=== PATIENT | male | born 1940 | race Caucasian/White ===

== ENCOUNTER 2024-03-25 15:07 | Outpatient (CLI) | payer MEDICARE, SELFPAY ==
[2024-03-25 15:26] LABS: Hematocrit 39.2 % (37.0-46.0); Hemoglobin 13.1 g/dL (12.4-15.3); Mean Corpuscular HGB Conc 33.4 g/dL (32-36); Mean Corpuscular Hemoglobin 30.6 pg (27.0-31.0); Mean Corpuscular Volume 91.6 fL (78.0-102.0); Mean Platelet Volume 9.6 fl (8.7-11.0); Platelet Count Result 202 K/mm3 (150-420); Red Blood Count 4.28 M/mm3 (4.70-6.10); Red Cell Distribution Width 13.2 % (11.6-14.4); White Blood Count 6.5 K/mm3 (4.8-10.8)
[2024-03-25 15:28] LABS: Add Urine Microscopic? NO; Appearance Urine Clear (Clear); Bilirubin Urine Negative (Negative); Blood Urine Negative (Negative); Color Urine Yellow (Yellow); Glucose Urine UA Negative (Negative); Ketones Urine Negative (Negative); Leukocyte Esterase Ur Negative LEU/UL (Negative); Nitrate Urine Negative (Negative); Protein Urine Negative (Negative); Specific Grav Ur >= 1.030 (1.010-1.020); Urobilinogen Urine 0.2 mg/dL (0.2-1.0)
[2024-03-25 16:12] LABS: Alanine Aminotransferase 19 U/L (16-63); Albumin Level 3.5 g/dL (3.4-5.0); Alkaline Phosphatase 130 U/L (46-116); Anion Gap 8 mmol/L (4-12); Aspartate Amino Transferase 13 U/L (15-37); Bilirubin,Total 0.5 mg/dL (0.00-1.00); Blood Urea Nitrogen 23 mg/dL (7-18); CRP 0.6 mg/dL (0.0-0.9); Calcium 8.9 mg/dL (8.5-10.1); Carbon Dioxide 29 mmol/L (21-32); Chloride 102 mmol/L (98-108); Estimated Glomerular Filt Rate > 60; Glucose 146 mg/dL (70-99); Osmolality Calculated 294 mOsm/kg (285-295); Sodium 139 mmol/L (136-145); Total Protein 6.7 g/dL (6.4-8.2)
== END 2024-03-25 15:08 | disposition home or self-care (01) ==
LOC: CHSLAB 15:16
PROVIDERS: PCP Internal Medicine; Visit Provider Internal Medicine
DX: R51.9 Headache, unspecified (principal)
CPT/HCPCS: 36415; 80053; 81003; 85027; 86140

== ENCOUNTER 2024-03-27 13:10 | Outpatient (CLI) | payer MEDICARE, SELFPAY ==
--- NOTE | ~2024-03-27 | CT_ITS ---
EXAMINATION: CT brain w con DATE: 03/27/2024 14:12 INDICATION: New onset headache. Lung cancer. TECHNIQUE: Computed tomography (CT) of the head was performed with 100 mL Omnipaque-350 intravenous c ontrast. Sagittal and coronal reconstructions were performed. Automated exposure control and iterativ e reconstruction technique were employed. The dose-length product was 605.33 mGy-cm. COMPARISON: None FINDINGS: No acute intracranial hemorrhage, acute infarction or abnormal extra axial fluid collection. Small ol d lacunar infarct anterior left frontal lobe periventricular white matter. There is mild scattered wh ite matter hypoattenuation consistent with chronic small vessel ischemic disease. Ventricles are nor mal and symmetric. No mass/mass effect. No abnormally enhancing brain lesions. The cerebral vasculatu re appears unremarkable with no evident aneurysm hemogram and significant stenosis or thrombosis. Dalia nges of bilateral intraocular lens replacement. The orbits, paranasal sinuses and mastoid air cells a re normal. IMPRESSION: 1. No acute intracranial process or abnormally enhancing brain lesions. 2. Small old lacunar infarct in the periventricular left frontal lobe white matter and mild scattered white matter hypoattenuation consistent with chronic small vessel ischemic disease. Reviewed, dictated and finalized at location A. IMPRESSION: 1. No acute intracranial process or abnormally enhancing brain lesions. 2. Small old lacunar infarct in the periventricular left frontal lobe white mat ter and mild scattered white matter hypoattenuation consistent with chronic sma ll vessel ischemic disease.
== END 2024-03-27 13:11 | disposition home or self-care (01) ==
PROVIDERS: PCP Internal Medicine; Visit Provider Internal Medicine
DX: R51.9 Headache, unspecified (principal); Z85.118 Personal history of other malignant neoplasm of bronchus and lung; Z86.73 Personal history of transient ischemic attack (TIA), and cerebral infarction without residual deficits
CPT/HCPCS: 70460; Q9967

== ENCOUNTER 2024-04-16 10:36 | Outpatient (CLI) | payer MEDICARE, SELFPAY ==
--- NOTE | ~2024-04-16 | XR_ITS ---
Right Knee Technique: AP, lateral, and sunrise views were obtained. Clinical History: Pain Findings: No fracture or dislocation is seen. Osseous alignment is anatomic. There is medial compartm ent narrowing. There is mild tricompartmental osteophyte formation.. Soft tissues are unremarkable. N o joint effusion is seen. Impression: Moderate medial compartment degenerative change. Mild lateral and patellofemoral compartment degenera tive change. Reviewed, dictated and finalized at location M. Impression: Moderate medial compartment degenerative change. Mild lateral and patellofemora l compartment degenerative change.
== END 2024-04-16 10:37 | disposition home or self-care (01) ==
LOC: CHSIMG 11:43
PROVIDERS: PCP Internal Medicine; Visit Provider Internal Medicine
DX: M25.561 Pain in right knee (principal)
CPT/HCPCS: 73562

== ENCOUNTER 2024-07-01 07:17 | Outpatient (CLI) | payer MEDICARE, SELFPAY ==
[2024-06-21 13:28] VITALS: BMI 26.7
--- NOTE | 2024-06-21 13:28 | PC.NURSE ---
Pre Radiology instructions Report to the outpatient az olivo on date __07/01/24__ at time __07:30am for procedure Time: __09:30am __ YOU MAY BE MONITORED AT HOSPITAL FOR UP TO 4 HOURS AFTER YOUR PROCEDURE. A visitor will be allowed to accompany the patient into the hospital. You and your visitor will be asked to self-screen and do not enter if you have any COVID symptoms. A mask is OPTIONAL within the hospital. Patients are to have no food or drink 6 hours prior to procedure time Driving will be restricted after the procedure, you must have a person to drive you home. Labs will be drawn in preop area and once reviewed, you will be taken to radiology area for procedure. When the procedure is completed, you will be taken to outpatient where you will be monitored for several hours. You may have one visitor in this area. Other than holding anti-coagulants, patient may take other medication(s) as scheduled. Prior to your appointment date patients are instructed to hold anti-coagulants after discussing with ordering provider to stop. If unable to discontinue anti-coagulants please notify radiologist. ? No aspirin or warfarin (Coumadin) for 7 days prior to the procedure. ? No clopidogrel (Plavix), ticagrelor (Brilinta), prasugrel (Effient) or dabigatran (Pradaxa) for 5 days prior to the procedure. ? No rivaroxaban (Xarelto), apixaban (Eliquis), dipyridamole (Aggrenox or Persantine) or cilostazol (Pletal) for 2 days prior to the procedure. Medications to discontinue per physician: __Aspirin 7 days prior to procedure Date to take last dose: __06/23/24 Please leave all valuables, including medications, at home the day of procedure. The hospital will not accept responsibility for valuables. Wear comfortable, loose fitting clothing.? Follow any additional instructions given to you from ordering provider. Telephone instructions given to __Ellie ( Traffic Routing Engineer at home) and asked if any additional questions and then verbalized understanding. Patient advised to call scheduling provider office or registration scheduling [phone] if any additional questions.
--- NOTE | ~2024-07-01 | XR_ITS ---
[id number] Ordering provider: Man Longoria MD History: 83 years Male with . RT THORA . Comparison: None. FINDINGS: MEDIASTINUM: The cardiac silhouette is slightly enlarged. Congestive angle. LUNGS: No pneumothorax. Opacification in the right lower lobe area suggestive of atelectasis versus p neumonia with pleural effusion. OTHER: No free air under the diaphragm. IMPRESSION: Right basilar atelectasis versus pneumonia with pleural effusion. Reviewed, dictated and finalized at location A. RIFUGE SEPARATOR OPERATOR
--- NOTE | ~2024-07-01 | US_ITS ---
EXAMINATION: US thoracentesis DATE: 07/01/2024 10:41 INDICATION: Right pleural effusion TECHNIQUE: The procedure and its risks and benefits were discussed with the patient. Potential risks discussed included bleeding, infection, and pneumothorax. The patient understood the risks and agreed to proceed. The skin was prepped and draped in sterile fashion. 1% lidocaine was used for local anes thesia. Under ultrasound guidance, a 5 Fr catheter with trochar was advanced into the right pleural e ffusion. Fluid was aspirated. The catheter was removed, and a dressing was applied. There were no imm ediate complications. FINDINGS: Ultrasound images demonstrate a large right pleural effusion and the catheter within the fluid. IMPRESSION: 1. Successful ultrasound-guided thoracentesis yielding 1100 mL of dark reddish fluid. Reviewed, dictated and finalized at location A. SCAPE GARDENER
[2024-07-01 07:30] VITALS: BP 139/76; PULSE 65; RESP 14; TEMP 36.3; O2SAT 98
[2024-07-01 08:01] LABS: Mean Platelet Volume 10.3 fl (7.4-10.4); Platelet Count Result 226 k/mm3 (150-375)
[2024-07-01 08:31] LABS: Prothrombin Time 13.8 Seconds (11.1-14.7)
[2024-07-01 10:35] VITALS: BP 127/78; PULSE 70; RESP 20; O2SAT 97
[2024-07-01 10:50] VITALS: BP 133/72; PULSE 70; RESP 20
[2024-07-01 11:15] VITALS: BP 138/74; PULSE 68; RESP 20
[2024-07-01 11:45] VITALS: BP 128/73; PULSE 76; RESP 20; O2SAT 99
[2024-07-01 12:15] VITALS: BP 131/71; PULSE 68; RESP 20
== END 2024-07-01 12:20 | disposition home or self-care (01) ==
PROVIDERS: PCP Internal Medicine; Visit Provider Radiology Diagnostic Radiology
DX: C34.90 Malignant neoplasm of unspecified part of unspecified bronchus or lung (principal); J90 Pleural effusion, not elsewhere classified; J98.11 Atelectasis
CPT/HCPCS: 32555; 36415; 85049; 85610; 87070; 87075; 87205; 88108; 88305; 88342

== ENCOUNTER 2024-09-08 09:52 | Emergency (ER) | payer MEDICARE, SELFPAY ==
[2024-09-08] VITALS (11 sets, daily range): BP systolic 115–148; BP diastolic 61–89; PULSE 58–65; RESP 16–18; TEMP 36.6; O2SAT 96–100
--- NOTE | ~2024-09-08 | CT_ITS ---
EXAMINATION: CT abdomen pelvis wo con DATE: 09/08/2024 12:17 INDICATION: Left lower quadrant swelling TECHNIQUE: Computed tomography (CT) of the abdomen and pelvis was performed without intravenous contr ast. Automated exposure control and iterative reconstruction technique were employed. The dose-length product was 501.81 mGy-cm. COMPARISON: None FINDINGS: Partially visualized at least moderate sized, potentially large right pleural effusion with some depr ession of the right hemidiaphragm. Atelectasis in the dependent portion of the visualized right middl e and lower lobes. Mild cardiomegaly. Atherosclerotic coronary artery calcifications. No pericardial or left-sided pleural effusion. Small calcified gallstones in the dependent aspect of the normal gallbladder. There are few scattered hepatic and splenic calcifications consistent with old granulomatous disease. Pancreas, right kidney and bilateral adrenal glands are normal. 7 mm nonobstructing stone at the lower pole of the left kid canelo. Normal appendix. Moderate amount of stool scattered throughout the colon. No dilated bowel to manzanares ggest obstruction. There are large bilateral fat-containing inguinal hernias. Bladder is normal. Pros tatomegaly. No free intraperitoneal gas or fluid. No pathologically enlarged abdominal or pelvic lymp hadenopathy. Moderate lumbar and lower thoracic spondylosis with combined instrumented L4-L5 anterior and posterior spinal fusion. 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 IMPRESSION: 1. No acute intra-abdominal/pelvic process. 2. Partially visualized at least moderate-sized unilateral right pleural effusion. Correlate with res ults from prior thoracentesis performed without prior. 3. Cholelithiasis. 4. Nonobstructing 7 mm left renal stone. 5. Large bilateral fat-containing inguinal hernias. 6. Prostatomegaly. Reviewed, dictated and finalized at location A. OLOGY TEACHER IMPRESSION: 1. No acute intra-abdominal/pelvic process. 2. Partially visualized at least moderate-sized unilateral right pleural effusi on. Correlate with results from prior thoracentesis performed without prior. 3. Cholelithiasis. 4. Nonobstructing 7 mm left renal stone. 5. Large bilateral fat-containing inguinal hernias. 6. Prostatomegaly.
--- NOTE | ~2024-09-08 | XR_ITS ---
EXAMINATION: XR chest 1V portable DATE: 09/08/2024 12:17 INDICATION: Shortness of breath TECHNIQUE: frontal view of the chest was obtained. COMPARISON: Chest radiograph dated 07/01/2024 FINDINGS: Interval increase in size of a large right pleural effusion with partial collapse of the right lung. Left small calcified nodule consistent with old granulomatous disease at the left midlung zone. No pu lmonary edema, pneumothorax or left-sided pleural effusion. Heart size is normal. Suture anchor at th e right humeral head suggesting prior rotator cuff repair. IMPRESSION: 1. Increased size of a unilateral large right pleural effusion with partial collapse of the right sharlene g. Underlying pneumonia or malignancy in the right lung is not excludable. Reviewed, dictated and finalized at location A. MOBILE UPHOLSTERER IMPRESSION: 1. Increased size of a unilateral large right pleural effusion with partial col lapse of the right lung. Underlying pneumonia or malignancy in the right lung i s not excludable.
--- OUTSIDE RECORDS SUMMARY | 2024-09-08 09:55 | XMS_ITS | Encounter Summary ---
Author Organization [facility] Address [facility] [place] [address] [place] [address] Care Team Providers Care Data Security Coordinator Name Role Phone Thiago Horton MD Primary Care Provider [phone] Andrea Jean Baptiste MD Unavailable [phone] Kirby Mesa APRN Unavailable [phone] Manisha Guidry MD Unavailable [phone] Encounter Details Date Type Department Care Team (Late st Contact Info) Description 09/16/2020 Hospital Follow-up Call [facility] [address] [place] [address] Rosa Asher RN Social History Tobacco Use Types Packs/Day Years Used Date Smoking Tobacco: Never Assessed Sex and Gender Information Value Date Recorded Sex Assigned at Not on file Legal Sex Male 10:23 PM PERSONNEL ADVISER Gender Identity Not on file Sexual Orientation Not on file COVID-19 Exposure Response Date Recorded In the last month, have you been in contact with someone who was confirmed or suspected to have Coronavirus / COVID-19? No / Unsure 09/14/2020 10:43 AM PERSONNEL ADVISER documented as of this encounter Functional Status * RETIRED Are you deaf or do you have serious difficulty hearing Answer Date of Assessment Author Status Yes 09/14/2020 2:52 PM PERSONNEL ADVISER Activ e * RETIRED Are you blind or do you have serious difficulty seeing, even when wearing glasses? Answer Date of Assessment Author Status No 09/14/2020 2:52 PM PERSONNEL ADVISER Activ e * Do you have serious difficulty walking or climbing stairs? Answer Date of Assessment Author Status No 09/14/2020 2:52 PM Caren Villalobos RN Active * Do you have difficulty dressing or bathing? Answer Date of Assessment Author Status No 09/14/2020 2:52 PM Caren Villalobos RN Active * Because of a physical, mental, or emotional condition, do you have difficulty doing errands alone such as visiting a doctor's office or shopping? Answer Date of Assessment Author Status No 09/14/2020 2:52 PM Caren Villalobos RN Active documented as of this encounter Mental Status * Because of a physical, mental, or emotional condition, do you have serious difficulty concentrating, remembering, or making decisions? Answer Entry Date Author Status No 09/14/2020 2:52 PM Caren Villalobos RN Active documented in this encounter Plan of Treatment Upcoming Encounters Date Type Department Care Team (Late st Contact Info) Description 09/11/2024 3:15 PM PERSONNEL ADVISER Appointment [facility] [address] [place] [address] Ari Cruz MD [address] [place] [phone] 09/11/2024 3:30 PM PERSONNEL ADVISER Office Visit [facility] [address] [place] [address] Ari Cruz MD [address] [place] [phone] 10/02/2024 9:30 AM PERSONNEL ADVISER Office Visit [facility] [address] [place] [address] Kirby Mesa, WEIGHER PACKING [address] [facility] [address] [address] documented as of this encounter Visit Diagnoses Not on filedocumented in this encounter Care Teams Data Security Coordinator Relationship Specialty Start Date End Date Thiago Horton MD [address] [place] [address] PCP - General FAMILY PRACTICE 09/16/20 Andrea Jean Baptiste MD [address] [place] [address] Consulting Physician INTERVENTIONAL CARDIOLOGY 09/16/20 Kirby Mesa APRN [address] [facility] [address] [address] Nurse Practitioner NURSE PRACTITIONER 09/16/20 Manisha Guidry MD [address] [place] [id number] PULMONARY DISEASE 02/08/23 documented as of this encounter
--- OUTSIDE RECORDS SUMMARY | 2024-09-08 09:55 | XMS_ITS | Encounter Summary ---
Author Organization [facility] Address [facility] [place] [address] [place] [address] Care Team Providers Care Manager Human Resources Name Role Phone Thiago Horton MD Primary Care Provider [phone] Andrea Jean Baptiste MD Unavailable [phone] Kirby Mesa APRN Unavailable [phone] Manisha Guidry MD Unavailable [phone] Encounter Details Date Type Department Care Team (Late st Contact Info) Description 11/07/2022 Hospital Follow-up Call [facility] [address] [place] [address] Rosa Vieyra, RN Social History Tobacco Use Types Packs/Day Years Used Date Smoking Tobacco: Never Smokeless Tobacco: Never Alcohol Use Standard Drinks/Week Comments Not Currently 0 (1 standard drink = 0.6 oz pur e alcohol) Humiliation, Afraid, Rape, and Kick questionnair e Answer Date Recorded Within the last year, have y ou been afraid of your partner or ex-partner? No 10/31/2022 Within the last year, have y ou been humiliated or emotionally abused in other ways by your partner or ex-partner? No Within the last year, have y ou been kicked, hit, slapped, or otherwise physically hurt by your partner or ex-partner? No 10/31/2022 Within the last year, have y ou been raped or forced to have any kind of sexual activity by your partner or ex-partner? No 10/31/2022 Social Connection and Isolat ion Panel [NHANES] Answer Date Recorded In a typical week, how many times do you talk on the phone with family, friends, or neighbors? More than three times a week 10/31/2022 How often do you get togethe r with friends or relatives? More than three times a week 10/31/2022 How often do you attend chur or rastafarian services? 1 to 4 times per year 10/31/2022 Do you belong to any clubs o r organizations such as latter day groups, unions, fraternal or athletic groups, or school groups? Yes 10/31/2022 How often do you attend meet ings of the clubs or organizations you belong to? Patient declined 10/31/2022 Are you , , di vorced, , never , or living with a partner? 10/31/2022 AUDIT-C Answer Date Recorded Q1: How often do you have a drink containing alcohol? Never 10/31/2022 Q2: How many drinks containi ng alcohol do you have on a typical day when you are drinking? Patient does not drink Q3: How often do you have si x or more drinks on one occasion? Never 10/31/2022 Overall Financial Resource Strain (CARDIA) Answe r Date Recorded How hard is it for you to pa y for the very basics like food, housing, medical care, and heating? Not hard at all 10/31/2022 [facility] Occupational Stress Questionnaire Answer Date Recorded Do you feel stress - tense, restless, nervous, or anxious, or unable to sleep at night because your mind is troubled all the time - these days? Not at all 10/31/2022 Exercise Vital Sign Answer Date Recorde d On average, how many days pe r week do you engage in moderate to strenuous exercise (like a brisk walk)? 0 days 10/31/2022 On average, how many minutes do you engage in exercise at this level? 0 min 10/31/2022 Hunger Vital Sign Answer Date Recorded Within the past 12 months, y ou worried that your food would run out before you got the money to buy more. Never true 11/01/19 23 Within the past 12 months, t he food you bought just didn't last and you didn't have money to get more. Never true 10/31/2022 PRAPARE - Transportation Answer Date Re corded In the past 12 months, has l ack of transportation kept you from medical appointments or from getting medications? No 10/06 In the past 12 months, has l ack of transportation kept you from meetings, work, or from getting things needed for daily living? No 10/31/2022 Housing Stability Vital Sign Answer Austin e Recorded In the last 12 months, was t here a time when you were not able to pay the mortgage or rent on time? No 10/31/2022 In the last 12 months, how many places have you lived? 1 10/31/2022 In the last 12 months, was t here a time when you did not have a steady place to sleep or slept in a skilled nursing (including now)? No 10/31/2022 Sex and Gender Information Value Date Recorded Sex Assigned at Not on file Legal Sex Male 10:23 PM GIS MAPPING TECHNICIAN Gender Identity Not on file Sexual Orientation Not on file COVID-19 Exposure Response Date Recorded In the last 10 days, have yo u been in contact with someone who was confirmed or suspected to have Coronavirus/COVID-19? No / Unsure 10/31/2022 6:26 AM CDT documented as of this encounter Functional Status * Are you deaf or do you have serious difficulty hearing Answer Date of Assessment Author Status Yes 10/31/2022 1:43 PM CDT Carole Alarcon RN Active * Are you blind or do you have serious difficulty seeing, even when wearing glasses? Answer Date of Assessment Author Status No 10/31/2022 1:43 PM CDT Carole Alarcon RN Active * Do you have serious difficulty walking or climbing stairs? Answer Date of Assessment Author Status No 10/31/2022 1:43 PM RONANT Craole Alarcon RN Active * Do you have difficulty dressing or bathing? Answer Date of Assessment Author Status No 10/31/2022 1:43 PM RONANT Carole Alarcon RN Active * Because of a physical, mental, or emotional condition, do you have difficulty doing errands alone such as visiting a doctor's office or shopping? Answer Date of Assessment Author Status No 10/31/2022 1:43 PM CDT Carole Alarcon, RN Active documented as of this encounter Mental Status * Because of a physical, mental, or emotional condition, do you have serious difficulty concentrating, remembering, or making decisions? Answer Entry Date Author Status No 10/31/2022 1:43 PM CDT Carole Alarcon RN Active documented in this encounter Plan of Treatment Upcoming Encounters Date Type Department Care Team (Late st Contact Info) Description 09/11/2024 3:15 PM GIS MAPPING TECHNICIAN Appointment [facility] [address] [address] Ari Cruz MD [address] [place] [phone] 09/11/2024 3:30 PM GIS MAPPING TECHNICIAN Office Visit [facility] [address] [place] [address] Ari Cruz MD [address] [place] [phone] 10/02/2024 9:30 AM GIS MAPPING TECHNICIAN [facility] [address] [place] [phone] Kirby Mesa, JOHNIE [address] [facility] [address] [address] documented as of this encounter Visit Diagnoses Not on filedocumented in this encounter Care Teams Manager Human Resources Relationship Specialty Start Date End Date Thiago Horton MD [address] [place] [address] PCP - General FAMILY PRACTICE 09/16/20 Andrea Jean Baptiste MD [address] [place] [address] Consulting Physician INTERVENTIONAL CARDIOLOGY 09/16/20 Kirby Mesa APRN [address] [facility] [address] [place] [address] Nurse Practitioner NURSE PRACTITIONER 09/16/20 Manisha Guidry MD [address] [place] [address] PULMONARY DISEASE 02/08/23 documented as of this encounter
--- OUTSIDE RECORDS SUMMARY | 2024-09-08 09:55 | XMS_ITS | Clinical Summary ---
Author Organization [facility] Address [address] [place] [address] [place] [address] Care Team Providers Care Inventory Accountant Name Role Phone Thiago Horton MD Primary Care Provider [phone] Andrea Jean Baptiste MD Unavailable [phone] Kirby Mesa APRN Unavailable [phone] Manisha Guidry MD Unavailable [phone] Allergies Active Allergy Reactions Criticality Noted Date Comments Acetaminophen Hives Medium 09/14/2020 Medications glipiZIDE XL 10 MG 24 hr tabletIndicatio ns:DM Take 1 tablet (10 mg total) by mouth daily. Indications: DM 1 Active traMADol 50 MG tablet Take 2 tablets (100 mg total) by mouth 2 (two) times daily as needed for Pain. 0 Active timolol 0.5 % ophthalmic solutionIndicat ions:Glaucoma Place 1 drop into both eyes 2 (two) times daily. Indications: Glaucoma 0 Active vitamin B-12 (CYANOCOBALAMIN ) 1000 mcg tabletIndicatio ns:supplement Take 1 tablet (1,000 mcg total) by mouth daily. Indications: supplement Active TRUE METRIX BLOOD GLUCOSE TEST test strip USE TO TEST BLOOD SUGAR DAILY 2 Active lisinopril (PRINIVIL) 10 MG tablet TAKE 1 TABLET BY MOUTH DAILY 90 tablet 3 3 Active atorvastatin (LIPITOR) 40 MG tabletIndicatio ns:Coronary artery disease involving [place] coronary artery of [place] heart without angina pectoris,Dyslip idemia TAKE 1 TABLET BY MOUTH DAILY 90 tablet 3 3 Active aspirin EC (ECOTRIN) 81 MG tablet Take 1 tablet (81 mg total) by mouth daily. Active propranolol LA (INDERAL LA) 60 MG 24 hr capsule Take 1 capsule (60 mg total) by mouth nightly at bedtime. 4 Active amitriptyline (ELAVIL) 10 MG tablet Take 1 tablet (10 mg total) by mouth nightly at bedtime. 4 Active osimertinib (TAGRISSO) 80 MG tabletIndicatio ns:Adenocarcino ma of right lung ([facility]/HCC) Take 1 tablet by mouth daily. 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 Peripheral edema 09/21/2022 Essential (primary) hypertension 09/30/2020 Coronary artery disease invo lving [place] coronary artery of [place] heart without angina pectoris 09/29/2020 Dyslipidemia 09/29/2020 Acute myocardial infarction ([facility]) STEMI (ST elevation myocardi al infarction) ([facility]) 09/14/2020 Resolved Problems Problem Noted Date Diagnosed Date Resolved Date Pre-op examination 05/10/2023 3 Encounters Date Type Department Care Team Description 08/19/2024 8:12 AM GALVANOMETER ASSEMBLER - 08/19/2024 11:59 PM GALVANOMETER ASSEMBLER Hospital [facility] [place] [address] Chadwick Lam MD Discharge Disposition: Home or Self Care (Routine Discharge) 08/19/2024 Travel 08/19/2024 Orders Only [place] [address] [place] [address] Chadwick Lam MD 08/16/2024 Orders Only [facility] [place] [address] Chadwick Lam MD 08/14/2024 3:30 PM GALVANOMETER ASSEMBLER Office Visit [place] [address] [place] [address] Chadwick Lam MD Follow Up (Adenocarcinoma of right lung (CMS/HCC HHS/HCC) [C34.91]) 08/14/2024 Travel 08/08/2024 Telephone [place] [address] [place] [address] Chadwick Lam MD Medication ([facility] called to ask about bridge program. ) 08/01/2024 Orders Only [place] [address] [place] [address] [address] Chadwick Lam MD 07/26/2024 9:32 AM GALVANOMETER ASSEMBLER - 07/26/2024 11:59 PM GALVANOMETER ASSEMBLER Hospital Encounter [address] [place] [address] Chadwick Lam MD Discharge Disposition: Home or Self Care (Routine Discharge) 07/26/2024 9:30 AM GALVANOMETER ASSEMBLER - 07/26/2024 9:31 AM GALVANOMETER ASSEMBLER Hospital Encounter [address] [place] [address] Chadwick Lam MD Discharge Disposition: Home or Self Care (Routine Discharge) 07/26/2024 Travel 07/26/2024 Orders Only [place] [address] [place] [address] Chadwick Lam MD 07/24/2024 3:00 PM GALVANOMETER ASSEMBLER Office Visit [place] [address] [place] [address] Chadwick Lam MD Follow Up (Adenocarcinoma of right lung (CMS/HCC HHS/HCC) [C34.91]) 07/24/2024 Travel 07/17/2024 Orders Only [place] [address] [place] [address] Chadwick Lam MD 07/17/2024 Orders Only [place] [address] [place] [address] Chadwick Lam MD 07/16/2024 Orders Only [place] [address] [place] [address] Chadwick Lam MD 07/11/2024 Orders Only [address] [place] [address] Chadwick Lam MD 07/10/2024 2:20 PM GALVANOMETER ASSEMBLER Office Visit [place] [address] [place] [address] Chadwick Lam MD Follow Up 07/10/2024 2:10 PM GALVANOMETER ASSEMBLER - 07/10/2024 11:59 PM GALVANOMETER ASSEMBLER Hospital Encounter [facility] [address] [place] [address] [place] [address] Chadwick Lam MD Discharge Disposition: Home or Self Care (Routine Discharge) 07/10/2024 Travel from Last 3 Months Family History Relation Status Comments Father Mother Social History Tobacco Use Types Packs/Day Years Used Date Smoking Tobacco: Never Smokeless Tobacco: Never Tobacco Cessation:Counseling Given: Not Answered Alcohol Use Standard Drinks/Week Comments Not Currently [...] 10/31/2022 How often do you attend chur ch or mormonism services? 1 to 4 times per year 10/31/2022 Do you belong to any clubs o r organizations such as episcopalian groups, unions, fraternal or athletic groups, or [...] and heating? Not hard at all 10/31/2022 [facility] - Occupational Stress Questionnaire Answer [...] place to sleep or slept in a jail (including now)? No 10/31/2022 Sex and Gender Information Value Date Recorded Sex Assigned at Not on file Legal Sex Male 10:23 PM GALVANOMETER ASSEMBLER Gender Identity Not on file Sexual Orientation Not on file Last Filed Vital Signs Vital Sign Reading Time Taken Comments Blood Pressure 146/82 08/14/2024 3:20 PM GALVANOMETER ASSEMBLER Pulse 75 08/14/2024 3:20 PM GALVANOMETER ASSEMBLER Temperature 36.2 ??C (97.1 ??F) 08/14/2024 3:20 PM CS T Respiratory Rate 22 08/14/2024 3:20 PM GALVANOMETER ASSEMBLER Oxygen Saturation 99% 08/14/2024 3:20 PM GALVANOMETER ASSEMBLER Inhaled Oxygen Concentration - - Weight 92.2 kg (203 lb 3.2 oz) 08/14/2024 3:20 P M GALVANOMETER ASSEMBLER Height 185.4 cm (6' 1 ) 08/14/2024 3:20 PM GALVANOMETER ASSEMBLER Body Mass Index 26.81 08/14/2024 3:20 PM GALVANOMETER ASSEMBLER Plan of Treatment Upcoming Encounters Date Type Department Care Team (Late st Contact Info) Description 09/11/2024 3:15 PM GALVANOMETER ASSEMBLER Appointment [facility] [place] [address] Chadwick Lam MD [address] [place] [phone] 09/11/2024 3:30 PM GALVANOMETER ASSEMBLER Office Visit [facility] [place] [address] Chadwick Lam MD [address] [place] [phone] 10/02/2024 9:30 AM GALVANOMETER ASSEMBLER Office Visit [facility] eld [address] [place] [phone] Bonita Kirby Louis, [employer] REMOVER AND DUMPER [address] [facility] [address] [place] [address] Health Maintenance Due Date Last Done Comments ASCVD Statin 1940 Pneumococcal Vaccine: 65+ Years (1 of 2 - PCV) 1945 Zoster Vaccines (1 of 2) 1989 Annual Medicare Wellness Visit 2004 RSV Immunization or 60+ Years (1 - 1-dose 75+ series) 2014 ASCVD LDL 09/14/2021 09/14/2020 COVID-19 Vaccine ( season) 2024 07/07/2021, 10/27/2020, 09/29/2020 DTaP, Tdap and Td Vaccines (2 - Td or Tdap) 04/22/2027 04/22/2017 Influenza Adult Completed 07/18/2024, 05/07, 05/08/2020, Additional history exists Meningococcal B Vaccine Aged Out No l onger eligible based on patient's age to complete this topic Meningococcal Vaccine Aged Out No tessa ozzy eligible based on patient's age to complete this topic RSV Immunizations Under 20 Months Aged Out No longer eligible based on patient's age to complete this topic Medical Devices Implanted Type Area Digital Project Coordinator Device Identifier Shelf Expiration Date Model / Serial / Lot Iol Stephen Sn60wf - [id number] Implanted:Qty: 1 on 05/30/2022 by Pawan Barton MD at [facility] Lens Left: Eye [employer] [id number] 01/16/2027 [id number] / [id number] / NA Description:Confirmed per ep ic orders and Dr Barton Iol Stephen Sn60wf - [id number] Implanted:Qty: 1 on 06/13/2022 by Pawan Barton MD at [facility] Lens [employer] [id number] 01/17/2027 [id number] / [id number] / NA Description:Dr Mick morris IOL Cv Resolute Onys Jhonathan Mcastent- [id number] Implanted:Qty: 1 on 09/14/2020 by Andrea Jean Baptiste MD Stent Coronary [employer] 04/09/2022 [id number] / / [id number] Procedures Procedure Name Priority Date/Time Associated Diagnosis Comments COMPREHENSIVE METABOLIC PANEL Routine 08/19/2024 8:35 AM GALVANOMETER ASSEMBLER Adenocarcinoma of right lung (CMS/HCC HHS/HCC) CBC W/DIFF AUTOMATED Routine 08/19/2024 8:35 AM GALVANOMETER ASSEMBLER Adenocarcinoma of right lung (CMS/HCC HHS/HCC) US GD THORACENT W IMAGING Routine 07/26/2024 11:20 AM GALVANOMETER ASSEMBLER Adenocarcinoma of right lung (CMS/HCC HHS/HCC) XR CHEST PA OR AP 1V MARTY 07/26/2024 11:19 AM GALVANOMETER ASSEMBLER Adenocarcinoma of right lung (CMS/HCC HHS/HCC) Status post thoracentesis PROTHROMBIN TIME, VENOUS Routine 07/26/2024 9:56 AM GALVANOMETER ASSEMBLER History of thoracentesis PARTIAL THROMBOPLASTIN TIME,PTT Routine 07/26/2024 9:56 AM GALVANOMETER ASSEMBLER History of thoracentesis Abnormal coagulation profile LIPID PANEL Routine 09/14/2020 2:32 PM GALVANOMETER ASSEMBLER from Last 3 Months or Most Recently Relevant to Health Maintenance Results * (ABNORMAL) COMPREHENSIVE METABOLIC PANEL (08/19/2024 8:35 AM GALVANOMETER ASSEMBLER) SODIUM S/P/B 139 136 - 145 MMOL/L 08/19/2024 9:12 AM GALVANOMETER ASSEMBLER [facility] POTASSIUM S/P/B 4.6 3.5 - 5.1 MMOL/L 08/19/2024 9:12 AM GALVANOMETER ASSEMBLER [facility] CHLORIDE S/P/B 101 98 - 107 MMOL/L 08/19/2024 9:12 AM GALVANOMETER ASSEMBLER [facility] CO2 30.0 21.0 - 32.0 MMOL/L 08/19/2024 9:12 AM [facility] GLUCOSE 162(H) 70 - 99 MG/DL 08/19/2024 9:12 AM [facility] Comment: FASTING GLUCOSE 100 TO 125 MG/DL IS CONSISTENT WITH IMPAIRED FASTING GLUCOSE. FASTING GLUCOSE >125 MG/DL IS CONSISTENT WITH DIABETES. RANDOM GLUCOSE >200 MG/DL WITH HYPERGLYCEMIC SYMPTOMS IS CONSISTENT WITH DIABETES. PER ADA GUIDELINES BUN 18 6 - 24 MG/DL 08/19/2024 9:12 AM [facility] CREATININE S/P/B 0.82 0.70 - 1.30 MG/DL 08/19/2024 9:12 AM [facility] CALCIUM S/P/B 9.0 8.4 - 10.5 MG/DL 08/19/2024 9:12 AM [facility] BILIRUBIN TOTAL S/P/B 0.9 0.2 - 1.0 MG/DL 08/19/2024 9:12 AM [facility] Comment: THIS ASSAY IS NOT RECOMMENDED FOR PATIENTS UNDERGOING TREATMENT WITH ELTROMBOPAG DUE TO THE POTENTIAL FOR FALSELY ELEVATED RESULTS. ALKALINE PHOSPHATASE S/P/B 159(H) 45 - 115 U/L 08/19/2024 9:12 AM [facility] AST 15 15 - 37 U/L 08/19/2024 9:12 AM [facility] ALT 22 16 - 63 U/L 08/19/2024 9:12 AM [facility] TOTAL PROTEIN S/P/B 7.0 6.4 - 8.2 G/DL 08/19/2024 9:12 AM [facility] ALBUMIN S/P/B 3.1(L) 3.4 - 5.0 G/DL 08/19/2024 9:12 AM [facility] ANION GAP 8.0 5.0 - 15.0 MMOL/L 08/19/2024 9:12 AM [facility] OSMOLALITY (CALC) 293 MOSM/KG 025 9:12 AM [facility] Comment:REFERENCE RANGE NOT ESTABLISHED GFR ESTIMATE 86(L) >89 ML/MIN/1. 73 M2 08/19/2024 9:12 AM GALVANOMETER ASSEMBLER [facility] GFR NOTES GFR REFERENCE S: 08/19/2024 9:12 AM GALVANOMETER ASSEMBLER [facility] Comment: THE ESTIMATED GFR IS CALCULATED USING THE 2020 CKD-EPI EQUATION. THE FOLLOWING CATEGORIES FOR GRADING RENAL FUNCTION ARE RECOMMENDED BY THE INTERNATIONAL SOCIETY OF NEPHROLOGY (KDIGO 2012 CLINICAL PRACTICE GUIDELINE). G1,NORMAL OR HIGH: >89 ml/min/1.73 m2 G2,MILDLY DECREASED: 60-89 ml/min/1.73 m2 G3A,MILDLY TO MODERATELY DECREASED: 45-59 ml/min/1.73 m2 G3B,MODERATELY TO SEVERELY DECREASED: 30-44 ml/min/1.73 m2 G4,SEVERELY DECREASED: 15-29 ml/min/1.73 m2 G5,KIDNEY FAILURE: <15 ml/min/1.73 m2 08/19/2024 8:35 AM GALVANOMETER ASSEMBLER us Chadwick Man Lam MD LABORATORY Final Result [facility] [address] [place] [address], * (ABNORMAL) CBC W/DIFF AUTOMATED (08/19/2024 8:35 AM GALVANOMETER ASSEMBLER) WBC 6.33 4.00 - 10.80 x10'3/uL 08/19/2024 8:45 AM GALVANOMETER ASSEMBLER [facility] RBC 4.10(L) 4.50 - 6.10 x10'6/uL 08/19/2024 8:45 AM [facility] HGB 12.4(L) 13.0 - 18.0 G/DL 08/19/2024 8:45 AM GALVANOMETER ASSEMBLER [facility] HCT 37.2 37.0 - 52.0 % 08/19/2024 8:45 AM [facility] MCV 90.7 78.0 - 100.0 FL 08/19/2024 8:45 AM [facility] MCH 30.2 27.0 - 31.0 PG 08/19/2024 8:45 AM [facility] MCHC 33.3 33.0 - 36.0 G/DL 08/19/2024 8:45 AM [facility] RDW 13.8 11.5 - 14.5 % 08/19/2024 8:45 AM [facility] PLT 228 150 - 350 x10'3/uL 08/19/2024 8:45 AM [facility] MPV 10.0 7.4 - 10.4 FL 08/19/2024 8:45 AM [facility] CBC COMMENT NORMAL REFERENCE RANGE NOT ESTABLISHED FOR THE PROPORTIONAL LEUKOCYTE DIFFERENTIAL. 08/19/2024 8:45 AM [facility] NEUTROPHILS % 72.5 % 08/19/2024 8:45 AM [facility] LYMPHOCYTES % 15.0 % 08/19/2024 8:45 AM [facility] MONOCYTES % 10.0 % 08/19/2024 8:45 AM [facility] EOSINOPHILS % 1.4 % 08/19/2024 8:45 AM [facility] BASOPHILS % 0.6 % 08/19/2024 8:45 AM [facility] IMMATURE GRANS % 0.5 % 08/19/19 8:45 AM [facility] NRBC % 0.0 % 08/19/2024 8:45 AM [facility] ABS. NEUTROPHILS 4.59 1.60 - 8.30 x10'3/uL 08/19/2024 8:45 AM [facility] ABS. LYMPHOCYTES 0.95 0.80 - 4.70 x10'3/uL 08/19/2024 8:45 AM [facility] ABS. MONOCYTES 0.63 0.00 - 1.50 x10'3/uL 08/19/2024 8:45 AM [facility] ABS. EOSINOPHILS 0.09 0.00 - 0.40 x10'3/uL 08/19/2024 8:45 AM [facility] ABS. BASOPHILS 0.04 0.00 - 0.20 x10'3/uL 08/19/2024 8:45 AM GALVANOMETER ASSEMBLER [facility] ABS. IMMATURE GRANULOCYTES 0.03 0.00 - 0.03 x10'3/uL 08/19/2024 8:45 AM GALVANOMETER ASSEMBLER [facility] ABS. NUCLEATED RBC'S 0.00 0.00 - 0.01 x10'3/uL 08/19/2024 8:45 AM GALVANOMETER ASSEMBLER [facility] 08/19/2024 8:35 AM GALVANOMETER ASSEMBLER us Chadwick Lam MD LABORATORY Final Result [facility] [address] [place] [address], * US GD THORACENT W IMAGING (07/26/2024 11:20 AM GALVANOMETER ASSEMBLER) Anatomical Region Laterality Modality Ultrasound, Radi ographic Imaging 07/26/2024 12:0 4 PM GALVANOMETER ASSEMBLER Impressions 07/26/2024 12:09 PM GALVANOMETER ASSEMBLER IMPRESSION: Uneventful ultrasound-guided right thoracentesis as described. Ordered By: CHADWICK LAM Interpreted By: Jose Jasso MD, 07/26/2024 12:04 PM Narrative 07/26/2024 12:09 PM GALVANOMETER ASSEMBLER [place] [address] [facility] [place] [address] Examination: Ultrasound-guided right thoracentesis. Exam time: 1030 hours. Clinical history: Prior right upper lobectomy for adenocarcinoma. Development of right pleural effusion status post thoracentesis at another facility, 07/01/2024 revealing malignant effusion. Therapeutic thoracentesis. Comparison: None. Technique: Grayscale images for procedure guidance. Findings: Appropriate consent and timeout procedures were accomplished. Initial images document right pleural effusion of sufficient volume for safe thoracentesis. A site for thoracentesis was selected and localized under ultrasound. Following sterile prep and local anesthesia with 1% Xylocaine, a small skin cece was placed to facilitate introduction of a 5 [place] One-Step catheter into the pleural cavity. This was accomplished without incident. 1.25 L of clear serosanguineous fluid was subsequently withdrawn and discarded. The patient began complaining of mild chest discomfort and the procedure was terminated at that point. The catheter was removed intact. The skin entry site was cleaned and dressed with a combination of gauze and Tegaderm. There were no immediate complications from the procedure. Overall, the patient tolerated the procedure well. Procedure Note Jose Jasso MD - 07/26/2024 [facility] [address] [facility] [place] [address] Examination: Ultrasound-guided right thoracentesis. Exam time: 1030 hours. Clinical history: Prior right upper lobectomy for adenocarcinoma.Development of right [facility] malignant effusion. Therapeuticthoracentesis. Comparison: None. Technique: Grayscale images for procedure guidance. Findings: Appropriate consent and timeout procedures were accomplished.Initial images document right pleural effusion of sufficient volume forsafe thoracentesis. A site for thoracentesis was selected and localizedunder ultrasound. Following sterile prep and local anesthesia with 1%Xylocaine, a small skin cece was placed to facilitate introduction of a 5French One-Step catheter into the pleural cavity. This was accomplishedwithout incident. 1.25 L of clear serosanguineous fluid was subsequentlywithdrawn and discarded. The patient began complaining of mild chestdiscomfort and the procedure was terminated at that point. The catheterwas removed intact. The skin entry site was cleaned and dressed with acombination of gauze and Tegaderm. There were no immediate complicationsfrom the procedure. Overall, the patient tolerated the procedure well. IMPRESSION: Uneventful ultrasound-guided right thoracentesis as described. Ordered By: CHADWICK LAM Interpreted By: Jose Jasso MD, 07/26/2024 12:04 PM us Chadwick Lam MD ULTRASOUND Final Result * XR CHEST PA OR AP 1V (07/26/2024 11:19 AM GALVANOMETER ASSEMBLER) Anatomical Region Laterality Modality Chest Radiographic Jana ging 07/26/2024 12:3 3 PM GALVANOMETER ASSEMBLER Impressions 07/26/2024 12:36 PM GALVANOMETER ASSEMBLER IMPRESSION: 1. No evidence of pneumothorax, status post right thoracentesis. 2. Nonspecific opacity in the right hemithorax as described. Ordered By: CHADWICK LAM Interpreted By: Jose Jasso MD, 07/26/2024 12:33 PM Narrative 07/26/2024 12:36 PM GALVANOMETER ASSEMBLER [place] [address] [facility] [place] [address] Examination: Single view chest. Exam time: 1100 hours. Clinical history: Prior right upper lobectomy for cancer in May 2023. Recently documented malignant right pleural effusion at another facility. Post thoracentesis. Comparison: 09/14/2020 ([facility]). Technique: PA upright expiratory view. Findings: Allowing for differences in projection and rotation, the cardiomediastinal silhouette is stable. Allowing for projection, the heart size is normal. Pulmonary vascularity is within normal limits. Granuloma in the left upper lung is again evident. The left lung and pleural space are otherwise clear. There is opacity in the right hemithorax. The relative contributions of residual effusion, recurrent disease and scarring to this appearance are uncertain in the absence of more recent comparison. There is no pneumothorax, post thoracentesis. The visualized bony thorax is stable. Orthopedic anchors in the right humeral head again evident. Procedure Note Jose Jasso MD - 07/26/[address] [place] [address] Examination: Single view chest. Exam time: 1100 hours. Clinical history: Prior right upper lobectomy for cancer in May 2023.Recently documented malignant right pleural effusion at another facility.Post thoracentesis. Comparison: 09/14/2020 ([facility]). Technique: PA upright expiratory view. Findings: Allowing for differences in projection and rotation, thecardiomediastinal silhouette is stable. Allowing for projection, the heartsize is normal. Pulmonary vascularity is within normal limits. Granulomain the left upper lung is again evident. The left lung and pleural spaceare otherwise clear. There is opacity in the right hemithorax. Therelative contributions of residual effusion, recurrent disease andscarring to this appearance are uncertain in the absence of more recentcomparison. There is no pneumothorax, post thoracentesis. The visualizedbony thorax is stable. Orthopedic anchors in the right humeral head againevident. IMPRESSION: 1. No evidence of pneumothorax, status post right thoracentesis. 2. Nonspecific opacity in the right hemithorax as described. Ordered By: CHADWICK LAM Interpreted By: Jose Jasso MD, 07/26/2024 12:33 PM Chadwick Lam MD GENERAL IMAGING Final Result * PARTIAL THROMBOPLASTIN TIME,PTT (07/26/2024 9:56 AM GALVANOMETER ASSEMBLER) PTT 36.5 25.1 - 36.5 SEC 07/26/2024 10:10 AM GALVANOMETER ASSEMBLER [facility] Comment:THERAPEUTIC RANGE: 4 6.2-77.0 SEC 07/26/2024 9:56 AM GALVANOMETER ASSEMBLER Chadwcik Lam MD LABORATORY Final Result [facility] [place] [address], * (ABNORMAL) PROTIME/INR, VENOUS (07/26/2024 9:56 AM GALVANOMETER ASSEMBLER) PROTIME 12.3 9.4 - 12.5 SEC 07/26/2024 10:10 AM GALVANOMETER ASSEMBLER [facility] INR 1.1(H) 0.8 - 1.0 07/26/2024 10:10 AM GALVANOMETER ASSEMBLER [facility] 07/26/2024 9:56 AM GALVANOMETER ASSEMBLER Chadwick Lam MD LABORATORY Final Result Performing Organization Address [facility]/State/ZIP Co de Phone Number [facility] [address] [place] [address], [place] [phone] * LIPID PANEL (09/14/2020 2:32 PM GALVANOMETER ASSEMBLER) CHOLESTEROL 233 MG/DL 09/14/2020 3:09 PM GALVANOMETER ASSEMBLER [facility] Comment:BORDERLINE HIGH: 200 -239 TRIGLYCERIDES 48 MG/DL 09/14/2020 3:09 PM GALVANOMETER ASSEMBLER [facility] Comment:<150 NORMAL HDL 58 >39 MG/DL 09/14/2020 3:09 PM GALVANOMETER ASSEMBLER [facility] LDL (CALCULATED) 165 MG/DL 09/14/19 3:09 PM GALVANOMETER ASSEMBLER [facility] Comment:160-189 HIGH VLDL CALCULATION 10 MG/DL 09/14/19 3:09 PM GALVANOMETER ASSEMBLER [facility] Comment:REFERENCE RANGE NOT ESTABLISHED CHOL/HDL RATIO 4.0 09/14/2020 3:09 PM GALVANOMETER ASSEMBLER [facility] Comment:REFERENCE RANGE NOT ESTABLISHED LDL/HDL 2.9 09/14/2020 3:09 PM GALVANOMETER ASSEMBLER [facility] Comment:REFERENCE RANGE NOT ESTABLISHED NON HDL CHOLESTEROL 175 MG/DL 09/14/2020 3:09 PM [facility] Comment:REFERENCE RANGE NOT ESTABLISHED 09/14/2020 2:32 PM GALVANOMETER ASSEMBLER [place] Jean Baptiste MD LABORATORY Final Res ult [facility] [address] [place] [address], [place] [phone] [id number] from Last 3 Months or Most Recently Relevant to Health Maintenance Insurance MEDICARE [facility] Advance Directives Documents on File Type Date Recorded Patient Test Clerk Expl anation Advance Directives and Living Will 09/15/2020 8:28 AM 05/24/2016 HC POA Advance Directives and Living Will 03/08/2017 POWER OF ASSISTANT HAIRSTYLIST FO R HEALTH CARE Advance Directives and Living Will 03/08/2017 POWER OF ASSISTANT HAIRSTYLIST FO R HEALTH CARE Advance Directives and Living Will 02/20/2017 POWER OF ASSISTANT HAIRSTYLIST FO R HEALTH CARE Advance Directives and Living Will 02/20/2017 POWER OF [facility] * Full Code (Latest Code Status on File) Date Activated Date Inactivated Comments 10/31/2022 3:44 PM 11/04/2022 1:51 PM Care Teams Inventory Accountant Relationship Specialty Start Date End Date Thiago Horton MD [address] [place] [address] PCP - General FAMILY PRACTICE 09/16/20 Andrea Jean Baptiste MD [address] [place] [address] Consulting Physician INTERVENTIONAL CARDIOLOGY 09/16/20 Kirby Mesa APRN 619 [facility] [address] [place] [address] Nurse Practitioner NURSE PRACTITIONER 09/16/20 Manisha Guidry MD [address] [place] [address] PULMONARY DISEASE 02/08/23
--- OUTSIDE RECORDS SUMMARY | 2024-09-08 09:55 | XMS_ITS | Data Portability ---
Author Organization [facility], 800 [facility] [place] ([place]) Address [address] [address] Assessment Encounter Date Assessment Date Assessment LastModified by Organization Details LastModified Time 07/18/2024 07/18/2024 Flu shot today. Reviewed his oncology updates. We will plan to see him back in 6 months or sooner if needed. [email or web address] Not available 07/29/2024 08:23:11 Plan of Treatment Reminders Order Date Submit Date Provider Last Modified By Organization Details Last Modified Time Details Appointments Establi shed Patient 20.EST 2024 09:00A M Dr. Thiago Horton Not available Not available Not available New Patient Visit 10.NEW 2024 11:30A M Dr. Chitra Kauffman Not available Not available Not available Lab None recorde d. Referral None recorde d. Procedures None recorde d. Surgeries None recorde d. Imaging None recorde d. Medication Orders propran olol ER 60 mg capsule ,24 hr,exte nded release [address], [address], 07/19/2024 11:00:22 amitrip tyline 10 mg tablet 2023 024 [facility], [address] [place] [address], [address], 07/19/2024 11:00:22 Patient TargetsNo targets recorded. Patient InstructionsNo instructions recorded. Reason for Referral None Reported. Problems Name Problem SNOMED Code Status Onset Date Resolution Date Notes Provider Name and Address Organization Details Recorded Time Tension-typ e headache 287340611 Active 2023 Thiago mike MD [address] [place] [address], [phone], [facility] 4 11:15:59 Primary malignant neoplasm of right lung 676995474 Active 2023 Thiago mike MD [address] [place] [address], [phone], [facility] 4 08:22:25 Coronary arterioscle rosis 72371597 Active 2023 Thiago mike MD [address] [place] [address], [address], [facility] 4 08:22:26 Type 2 diabetes mellitus without complicatio n 631275736 Active 2023 Thiago mike MD [address] [place] [address], [address], [facility] 4 08:22:28 Vaccination needed 2682058109255 04 Active 2023 Thiago mike MD [address] [place] [address], [address], [facility] 4 08:22:29 Problem Notes None recorded. Medical Equipment None Reported. Allergies Allergen ID Allergen Name Allergen Category Reaction Reaction Severity Criticality Documentation Date Start Date Code Code System Note Provider Name and Address Organization Details Recorded Time 3094781 gabapenti n medicatio n Not available Not available Not available 09/06/20232012 32944 RxNorm React ion: Abdom inal pain; Depre ssion ; Dry mouth ; Heada philip; Nause a; Not Available Not Available Not Available 8980434 ezetimibe medicatio n Not available Not available Not available 09/06/20232015 17679 8 RxNorm React ion: Chest Pain; Other : eleva sathya blood press ure and blood s; Not Available Not Available Not Available 6716516 duloxetin e Not available Not available Not available Not available 09/06/20232019 94027 RxNorm React ion: Hallu cinat ions; Depre ssion ; Fatig ue; Not Available Not Available Not Available 108753 acetamino phen medicatio n Not available Not available Not available 09/04/20232013 161 RxNorm React ion: Hyper tensi on; Hyper glyce macrina; Vomit ing; Not Available Not Available Not Available 755348 simvastat in medicatio n Not available Not available Not available 09/04/20232007 75962 RxNorm Not Available Not Available Not Available Medications Name Sig Start Date Stop Date Status Note LastModified by Organization Details LastModified Time atorvastati n 40 mg tablet TAKE 1 TABLET BY MOUTH DAILY 2023 active Not Available Not Available Not Avai lable prednisone 10 mg tablet TAKE 6 TABLETS TODAY, THEN DECREASE BY 1 TABLET EACH DAY UNTIL GONE. 07/18 completed Not Available Not Available Not Available glipizide ER 10 mg tablet, extended release 24 hr TAKE 1 TABLET BY MOUTH DAILY IN THE EVENING active Not Available Not Available No t Available propranolol ER 60 mg capsule,24 hr,extended release TAKE 1 CAPSULE BY MOUTH AT BEDTIME 2023 active Not Available Not Available Not Avai lable tramadol 50 mg tablet TAKE 1 TO 2 TABLETS BY MOUTH THREE TIMES DAILY NEEDED active Not Available Not Available No t Available amitriptyli ne 10 mg tablet TAKE 1 TABLET BY MOUTH DAILY AT BEDTIME 2023 active Not Available Not Available Not Avai lable lisinopril 10 mg tablet TAKE 1 TABLET DAILY DIRECTED. active Not Available Not Available No t Available dorzolamide 22.3 mg-timolol 6.8 mg/mL eye drops INSTILL ONE DROP INTO BOTH EYES TWICE DAILY active Not Available Not Available No t Available timolol maleate 0.5 % eye drops INSTILL 1 DROP IN EACH EYE TWO TIMES A DAY 07/18 completed Not Available Not Available Not Available True Metrix Glucose Test Strip USE TO TEST BLOOD SUGAR DAILY active Not Available Not Available No t Available Vitals Date Recorded Body height Body mass index (BMI) Body weight Respiratory rate Body temperature Heart rate Oxygen saturation Oxygen saturation in Arterial blood by Pulse oximetry Systolic blood pressure Diastolic blood pressure Provider Name and Address Organization Details Last Updated DateTime 4 182.88 cm 27.4 kg/m2 49620.6 6 g 18 /min 97.2 [degF] 63 /min 98 % 98 % 110 mm[Hg] 60 mm[Hg] Haley iyer [facility] 10:29:30 Social History None recorded. Functional Status None recorded. Mental Status None recorded. Family History Nothing Reported. Medical History No medical history recorded. Immunizations Vaccine Type Date Status Note Provider Nam e and Address Organization Details Recorded Time Influenza, adjuvanted, trivalent, PF 07/18/2024 completed Thiago Horton MD [facility] [place] [address], [phone], [facility] 07/29/2024 08:19:03 Past Encounters Encounter ID Performer Location Encounter Start Date Encounter Closed Date Diagnosis/Indication Diagnosis SNOMED-CT Code Diagnosis ICD10 Code Diagnosis Note [id number] Thiago Horton MD [facility] [address] [place] [address] 07/18/2024 10:12:36 07/18/2024 11:52:18 Tension-type headache 939521757 G44.209 Vaccination needed 79728 43117 12139 Z23 Type 2 mayi betes mellitus without complication 885584095 E11.9 Primary ma lignant neoplasm of right lung 540936255 C34.91 Coronary arteriosclerosis 99895118 I25.10 Diabetic p eripheral neuropathy 603991732 E11.42 Health Concerns Section Related Observation LastModified by Organization Detai ls LastModified Time None Recorded Concern Status LastModified by Organization Details LastModified Time None Recorded Advance Directives Directive None Recorded Payers Encounter Date Sequence Insurance Name Policy Number Policy Luque Covered Member ID Luque Member ID Guarantor Name 07/18/2024 1 [place] Chirag Cabezas [id number] Chirag Cabezas 07/18/2024 2 [place] [id number] Chirag Cabezas [id number] Chirag Cabezas Notes Date Note Type Note Provider Name and Address Organization Details Recorded Time 07/18/2024 text/html Here today for routine follow-up:???Type 2 ybfodhfy-qnuo-qcpyqm lled on glipizide. Blood sugars are all reasonable and he checks them daily. A1c due.???Tension headaches - on propranolol and amitriptyline now and working wellLeft carotid dissection - small in nature and nonoperative. Has seen Dr. Ramírez with [facility] head and neck and they are monitoring.???Right upper lobe lung cancer - s/p VATS upper lobe resection with negative lymph nodes with Dr. Quiroga in June 2023. Seeing Dr. Cruz. Has metastatic right-sided recurrence. Pursuing potential novel treatment.???CAD - s/p PCI in September 2020. LDL reassuring at secondary prevention goal. On clopidogrel. No chest pain and following with [facility].???Periphera l neuropathy - Mild and no associated pain. Checks his feet.???Chronic low back pain-has spinal stenosis and has a history of lumbar surgery. Takes the tramadol less than prescribed but needs it for chronic pain. Helps him stay very active. Duloxetine wasn't tolerated.???Right knee pain - stable. Has moderate to severe OA. Has had cortisone injection that only worked a small amount.???RLQ abdominal pain - CT reassuring. RUQ u/s showed cholelithiasis without cholecystitis. Saw Dr. Sanford with no intervention indicated. Likely MSK in nature. ?? Thiago Horton MD [address] , [place], [address], [place] [facility] 07/29/2024 08:23:27
--- OUTSIDE RECORDS SUMMARY | 2024-09-08 09:55 | XMS_ITS | Encounter Summary ---
Author Organization [facility] Address [facility]6 [place] [address] [place] [address] Care Team Providers Care Bindery Manager Name Role Phone Thiago Hroton MD Primary Care Provider [phone] Andrea Jean Baptiste MD Unavailable [phone] Kirby Mesa APRN Unavailable [phone] Manisha Guidry MD Unavailable [phone] Encounter Details Date Type Department Care Team (Late st Contact Info) Description 01/12/2019 Abstract [facility] [address] [place] [address] , Generic Conversion, Social History Tobacco Use Types Packs/Day Years Used Date Smoking Tobacco: Never Assessed Sex and Gender Information Value Date Recorded Sex Assigned at Not on file Legal Sex Male 10:23 PM SENIOR SOLUTIONS CONSULTANT Gender Identity Not on file Sexual Orientation Not on file documented as of this encounter Plan of Treatment Upcoming Encounters Date Type Department Care Team (Late Contact Info) Description 09/11/2024 3:15 PM SENIOR SOLUTIONS CONSULTANT Appointment [facility] [address] [place] [address] Ari Cruz MD [address] [place] [address] 09/11/2024 3:30 PM SENIOR SOLUTIONS CONSULTANT Office Visit [facility] [address] [place] [address] Ari Cruz MD [address] [place] [address] 10/02/2024 9:30 AM SENIOR SOLUTIONS CONSULTANT Office Visit [facility] el [address] [place] [address] Kirby Mesa APRN [address] [address] documented as of this encounter Visit Diagnoses Not on filedocumented in this encounter Care Teams Bindery Manager Relationship Specialty Start Date End Date Thiago Horton MD [address] [place] [address] PCP - General FAMILY PRACTICE 09/16/20 Andrea Jean Baptiste MD [address] [place], [place] [address] Consulting Physician INTERVENTIONAL CARDIOLOGY 09/16/20 Kirby Mesa APRN [address] [id number] Nurse Practitioner NURSE PRACTITIONER 09/16/20 Manisha Guidry MD [address] [place] [address] PULMONARY DISEASE 02/08/23 documented as of this encounter
--- OUTSIDE RECORDS SUMMARY | 2024-09-08 10:36 | XMS_ITS | Encounter Summary ---
Author Organization [facility] Address [facility] [facility] [place] [address] [place] [address] Care Team Providers Care Rolled Oats Mill Operator Name Role Phone Thiago Horton MD Primary Care Provider [phone] Andrea Jean Baptiste MD Unavailable [phone] Kirby Mesa APRN Unavailable [phone] Manisha Guidry MD Unavailable [phone] Encounter Details Date Type Department Care Team (Late st Contact Info) Description 09/16/2020 Hospital Follow-up Call [facility] [address] [place] [address] Rosa Asher RN Social History Tobacco Use Types Packs/Day Years Used Date Smoking Tobacco: Never Assessed Sex and Gender Information Value Date Recorded Sex Assigned at Not on file Legal Sex Male 10:23 PM GAME ROOM ATTENDANT Gender Identity Not on file Sexual Orientation Not on file COVID-19 Exposure Response Date Recorded In the last month, have you been in contact with someone who was confirmed or suspected to have Coronavirus / COVID-19? No / Unsure 09/14/2020 10:43 AM GAME ROOM ATTENDANT documented as of this encounter Functional Status * RETIRED Are you deaf or do you have serious difficulty hearing Answer Date of Assessment Author Status Yes 09/14/2020 2:52 PM GAME ROOM ATTENDANT Activ e * RETIRED Are you blind or do you have serious difficulty seeing, even when wearing glasses? Answer Date of Assessment Author Status No 09/14/2020 2:52 PM GAME ROOM ATTENDANT Activ e * Do you have serious [...] st Contact Info) Description 09/11/2024 3:15 PM GAME ROOM ATTENDANT Appointment [facility] [address] [place] [address] Ari Cruz MD [address] [place] [phone] 09/11/2024 3:30 PM GAME ROOM ATTENDANT Office Visit [facility] [address] [facility] [place] [address] Ari Cruz MD [address] [place] [phone] 10/02/2024 9:30 AM GAME ROOM ATTENDANT Office Visit [facility] [address] [place] [address] Kirby Mesa, FRUIT DRYER [address] [facility] [address] [address] documented as of this encounter Visit Diagnoses Not on filedocumented in this encounter Care Teams Rolled Oats Mill Operator Relationship Specialty Start Date End Date Thiago Horton MD [address] [place] [address] PCP - General FAMILY PRACTICE 09/16/20 Andrea Jean Baptiste MD [address] [place] [address] Consulting Physician INTERVENTIONAL CARDIOLOGY 09/16/20 Kirby Mesa APRN 619 [facility] [address] [address] Nurse Practitioner NURSE PRACTITIONER 09/16/20 Manisha Guidry MD [address] [place] [address] PULMONARY DISEASE 02/08/23 documented as of this encounter
--- OUTSIDE RECORDS SUMMARY | 2024-09-08 10:36 | XMS_ITS | Encounter Summary ---
Author Organization [facility] Address [facility]6 [place] [address] [place] [address] Care Team Providers Care Washer And Crusher Tender Name Role Phone Thiago Horton MD Primary Care Provider [phone] Andrea Jean Baptiste MD Unavailable [phone] Kirby Mesa APRN Unavailable [phone] Manisha Guidry MD Unavailable [phone] Encounter Details Date Type Department Care Team (Late st Contact Info) Description 01/12/2019 Abstract [facility] CONVERSION [address] [place] [address] , Generic Conversion, Social History Tobacco Use Types Packs/Day Years Used Date Smoking Tobacco: Never Assessed Sex and Gender Information Value Date Recorded Sex Assigned at Not on file Legal Sex Male 10:23 PM REPAIR SERVICE CLERK Gender Identity Not on file Sexual Orientation Not on file documented as of this encounter Plan of Treatment Upcoming Encounters Date Type Department Care Team (Late Contact Info) Description 09/11/2024 3:15 PM REPAIR SERVICE CLERK Appointment [facility] [address] [place] [address] Ari Cruz MD [address] [place] [address] 09/11/2024 3:30 PM REPAIR SERVICE CLERK Office Visit [facility] [address] [place] [address] Ari Cruz MD [address] [place] [address] 10/02/2024 9:30 AM REPAIR SERVICE CLERK Office Visit [facility] el [address] [place] [address] Kirby Mesa APRN [address] [address] documented as of this encounter Visit Diagnoses Not on filedocumented in this encounter Care Teams Washer And Crusher Tender Relationship Specialty Start Date End Date Thiago Horton MD [address] [place] [address] PCP - General FAMILY PRACTICE 09/16/20 Andrea Jean Baptiste MD [address] [place], [place] [address] Consulting Physician INTERVENTIONAL CARDIOLOGY 09/16/20 Kirby Mesa APRN [address] [phone] Nurse Practitioner NURSE PRACTITIONER 09/16/20 Manisha Guidry MD [address] [place] [address] PULMONARY DISEASE 02/08/23 documented as of this encounter
--- OUTSIDE RECORDS SUMMARY | 2024-09-08 10:37 | XMS_ITS | Encounter Summary ---
Author Organization [facility] Address [facility] [facility] [place] [address] [place] [address] Care Team Providers Care Dewaxer Name Role Phone Thiago Horton MD Primary Care Provider [phone] Andrea Jean Baptiste MD Unavailable [phone] Kirby Mesa APRN Unavailable [phone] Manisha Guidry MD Unavailable [phone] Encounter Details Date Type Department Care Team (Late st Contact Info) Description 11/07/2022 Hospital Follow-up Call [facility] [address] [place] [address] Rosa Vieyra, RN Social History [...] How often do you attend chur or church services? 1 to 4 times per year 10/31/2022 Do you belong to any clubs o r organizations such as judaism groups, unions, fraternal or athletic groups, or [...] and heating? Not hard at all 10/31/2022 [facility] Occupational Stress Questionnaire Answer [...] place to sleep or slept in a [place] health care facility (including now)? No 10/31/2022 Sex and Gender Information Value Date Recorded Sex Assigned at Not on file Legal Sex Male 10:23 PM PORK CUTLET MAKER Gender Identity Not on file Sexual Orientation [...] PM RONANT Carole Alarcon RN Active * Do you [...] st Contact Info) Description 09/11/2024 3:15 PM PORK CUTLET MAKER Appointment [facility] [address] [facility] [place] [address] Ari Cruz MD [address] [place] [phone] 09/11/2024 3:30 PM PORK CUTLET MAKER Office Visit [facility] [address] [place] [address] Ari Cruz MD [address] [place] [phone] 10/02/2024 9:30 AM PORK CUTLET MAKER [facility] [address] [place] [address] Kirby Mesa, JOHNIE 619 [facility] [address] [address] documented as of this encounter Visit Diagnoses Not on filedocumented in this encounter Care Teams Dewaxer Relationship Specialty Start Date End Date Thiago Horton MD [address] [place] [address] PCP - General FAMILY PRACTICE 09/16/20 Andrea Jean Baptiste MD [address] [place] [address] Consulting Physician INTERVENTIONAL CARDIOLOGY 09/16/20 Kirby Mesa APRN 6[address] [facility] [address] [place] [address] Nurse Practitioner NURSE PRACTITIONER 09/16/20 Manisha Guidry MD [address] [place] [address] PULMONARY DISEASE 02/08/23 documented as of this encounter
--- OUTSIDE RECORDS SUMMARY | 2024-09-08 10:37 | XMS_ITS | Clinical Summary ---
Author Organization [facility] Address [address] [place] [address] [place] [address] Care Team Providers Care Wood Tank Builder Name Role Phone Thiago Horton MD Primary Care Provider [phone] Andrea Jean Baptiste MD Unavailable [phone] Kirby Mesa APRN Unavailable [phone] Manisha Guidry MD Unavailable [phone] Allergies Active Allergy Reactions Criticality Noted Date [...] 40 MG tabletIndicatio ns:Coronary artery disease involving ouzinkie coronary artery of ouzinkie heart without angina pectoris,Dyslip idemia TAKE 1 [...] MG tabletIndicatio ns:Adenocarcino ma of right lung ([facility]/HCC) Take 1 tablet by mouth daily. 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 09/29/2020 Dyslipidemia 09/29/2020 Acute myocardial infarction ([facility]) STEMI (ST elevation myocardi al infarction) ([facility]) 09/14/2020 Resolved Problems Problem Noted Date Diagnosed Date Resolved Date Pre-op examination 05/10/2023 3 Encounters Date Type Department Care Team Description 08/19/2024 8:12 AM SPANNER OPERATOR - 08/19/2024 11:59 PM SPANNER OPERATOR [facility] [place] [address] Chadwick Lam MD Discharge Disposition: Home or Self Care (Routine Discharge) 08/19/2024 Travel 08/19/2024 Orders Only [place] [address] [place] [address] Chadwick Lam MD 08/16/2024 Orders Only [facility] [place] [address] Chadwick Lam MD 08/14/2024 3:30 PM SPANNER OPERATOR Office [place] [address] [place] [address] Chadwick Lam MD Follow Up (Adenocarcinoma of right lung (CMS/HCC HHS/HCC) [C34.91]) 08/14/2024 Travel 08/08/2024 Telephone [place] [address] [place] [address] Chadwick Lam MD Medication ([facility] called to ask about bridge program. ) 08/01/2024 Orders Only [place] [address] [place] [address] Chadwick Lam MD 07/26/2024 9:32 AM SPANNER OPERATOR - 07/26/2024 11:59 PM SPANNER OPERATOR Hospital Encounter [address] [place] [address] Chadwick Lam MD Discharge Disposition: Home or Self Care (Routine Discharge) 07/26/2024 9:30 AM SPANNER OPERATOR - 07/26/2024 9:31 AM SPANNER OPERATOR Hospital Encounter [address] [place] [address] Chadwick Lam MD Discharge Disposition: Home or Self Care (Routine Discharge) 07/26/2024 Travel 07/26/2024 Orders [place] [address] [place] [address] Chadwick Lam MD 07/24/2024 3:00 PM SPANNER OPERATOR Office Visit [place] [address] [place] [address] Chadwick Lam MD Follow Up (Adenocarcinoma of right lung (CMS/HCC HHS/HCC) [C34.91]) 07/24/2024 Travel 07/17/2024 Orders [place] [address] [place] [address] Chadwick Lam MD 07/17/2024 Orders Only [place] [address] [place] [address] Chadwick Lam MD 07/16/2024 Orders Only [place] [address] [place] [address] Chadwick Lam MD 07/11/2024 Orders Only [address] [place] [address] Chadwick Lam MD 07/10/2024 2:20 PM SPANNER OPERATOR Office Visit [place] [address] [place] [address] Chadwick Lam MD Follow Up 07/10/2024 2:10 PM SPANNER OPERATOR - 07/10/2024 11:59 PM SPANNER OPERATOR Hospital Encounter [facility] [address] [place] [address] [place] [address] Chadwick Lam MD Discharge Disposition: Home or [...] often do you attend chur ch or anabaptism services? 1 to 4 times per year 10/31/2022 Do you belong to any clubs o r organizations such as mandaeism groups, unions, fraternal or athletic groups, or [...] and heating? Not hard at all 10/31/2022 [facility] - Occupational Stress [...] place to sleep or slept in a fdc (including now)? No 10/31/2022 Sex and Gender Information Value Date Recorded Sex Assigned at Not on file Legal Sex Male 10:23 PM SPANNER OPERATOR Gender Identity Not on file Sexual Orientation Not on file Last Filed Vital Signs Vital Sign Reading Time Taken Comments Blood Pressure 146/82 08/14/2024 3:20 PM SPANNER OPERATOR Pulse 75 08/14/2024 3:20 PM SPANNER OPERATOR Temperature 36.2 ??C (97.1 ??F) 08/14/2024 3:20 PM CS T Respiratory Rate 22 08/14/2024 3:20 PM SPANNER OPERATOR Oxygen Saturation 99% 08/14/2024 3:20 PM SPANNER OPERATOR Inhaled Oxygen Concentration - - Weight 92.2 kg (203 lb 3.2 oz) 08/14/2024 3:20 P M SPANNER OPERATOR Height 185.4 cm (6' 1 ) 08/14/2024 3:20 PM SPANNER OPERATOR Body Mass Index 26.81 08/14/2024 3:20 PM SPANNER OPERATOR Plan of Treatment Upcoming Encounters Date Type Department Care Team (Late st Contact Info) Description 09/11/2024 3:15 PM SPANNER OPERATOR Appointment [facility] [place] [address] Chadwick Lam MD [address] [place] [phone] 09/11/2024 3:30 PM SPANNER OPERATOR Office Visit [facility] [place] [address] Chadwick Lam MD [address] [place] [phone] 10/02/2024 9:30 AM SPANNER OPERATOR Office Visit [facility]d [address] [place] [phone] Bonita Kirby Louis, SPEECH WRITER [address] [facility] [address] [place] [address] Health Maintenance Due Date Last Done Comments [...] topic Meningococcal Vaccine Aged Out No tessa ozyz eligible based on patient's age to complete this topic RSV Immunizations Under 20 Months Aged Out No longer eligible based on patient's age to complete this topic Medical Devices Implanted Type Area Digital Strategist Senior Manager Device Identifier Shelf Expiration Date Model / Serial / Lot Iol Stephen Sn60wf - [id number] Implanted:Qty: 1 on 05/30/2022 by Pawan Barton MD at [facility] Lens Left: Eye [employer] [id number] 01/16/2027 [id number] / [id number] / NA Description:Confirmed per ep ic orders and Dr Barton Iol Stephen Sn60wf - [id number] Implanted:Qty: 1 on 06/13/2022 by Pawan Barton MD at [facility] Lens [employer] [id number] 01/17/2027 [id number] / [id number] / NA Description:Dr Mick morris IOL Cv Resolute Onys Jhonathan Mcastent- [id number] Implanted:Qty: 1 on 09/14/2020 by Andrea Jean Baptiste MD Stent Coronary [employer] 04/09/2022 [id number] / / [id number] Procedures Procedure Name Priority Date/Time Associated Diagnosis Comments COMPREHENSIVE METABOLIC PANEL Routine 08/19/2024 8:35 AM SPANNER OPERATOR Adenocarcinoma of right lung (CMS/HCC HHS/HCC) CBC W/DIFF AUTOMATED Routine 08/19/2024 8:35 AM SPANNER OPERATOR Adenocarcinoma of right lung (CMS/HCC HHS/HCC) US GD THORACENT W IMAGING Routine 07/26/2024 11:20 AM SPANNER OPERATOR Adenocarcinoma of right lung (CMS/HCC HHS/HCC) XR CHEST PA OR AP 1V MARTY 07/26/2024 11:19 AM SPANNER OPERATOR Adenocarcinoma of right lung (CMS/HCC HHS/HCC) Status post thoracentesis PROTHROMBIN TIME, VENOUS Routine 07/26/2024 9:56 AM SPANNER OPERATOR History of thoracentesis PARTIAL THROMBOPLASTIN TIME,PTT Routine 07/26/2024 9:56 AM SPANNER OPERATOR History of thoracentesis Abnormal coagulation profile LIPID PANEL Routine 09/14/2020 2:32 PM SPANNER OPERATOR from Last 3 Months or Most Recently Relevant to Health Maintenance Results * (ABNORMAL) COMPREHENSIVE METABOLIC PANEL (08/19/2024 8:35 AM SPANNER OPERATOR) SODIUM S/P/B 139 136 - 145 MMOL/L 08/19/2024 9:12 AM SPANNER OPERATOR [facility] POTASSIUM S/P/B 4.6 3.5 - 5.1 MMOL/L 08/19/2024 9:12 AM SPANNER OPERATOR [facility] CHLORIDE S/P/B 101 98 - 107 MMOL/L 08/19/2024 9:12 AM SPANNER OPERATOR [facility] CO2 30.0 21.0 - 32.0 MMOL/L 08/19/2024 9:12 AM [facility] GLUCOSE 162(H) 70 - 99 MG/DL 08/19/2024 9:12 AM [facility] Comment: FASTING GLUCOSE 100 TO 125 MG/DL IS CONSISTENT WITH IMPAIRED FASTING GLUCOSE. FASTING GLUCOSE >125 MG/DL IS CONSISTENT WITH DIABETES. RANDOM GLUCOSE >200 MG/DL WITH HYPERGLYCEMIC SYMPTOMS IS CONSISTENT WITH DIABETES. PER ADA GUIDELINES BUN 18 6 - 24 MG/DL 08/19/2024 9:12 AM [facility] CREATININE S/P/B 0.82 0.70 - 1.30 MG/DL 08/19/2024 9:12 AM [facility] CALCIUM S/P/B 9.0 8.4 - 10.5 MG/DL 08/19/2024 9:12 AM [facility] BILIRUBIN TOTAL S/P/B 0.9 0.2 - 1.0 MG/DL 08/19/2024 9:12 AM [facility] Comment: THIS ASSAY IS NOT RECOMMENDED FOR PATIENTS UNDERGOING TREATMENT WITH ELTROMBOPAG DUE TO THE POTENTIAL FOR FALSELY ELEVATED RESULTS. ALKALINE PHOSPHATASE S/P/B 159(H) 45 - 115 U/L 08/19/2024 9:12 AM [facility] AST 15 15 - 37 U/L 08/19/2024 9:12 AM [facility] ALT 22 16 - 63 U/L 08/19/2024 9:12 AM [facility] TOTAL PROTEIN S/P/B 7.0 6.4 - 8.2 G/DL 08/19/2024 9:12 AM [facility] ALBUMIN S/P/B 3.1(L) 3.4 - 5.0 G/DL 08/19/2024 9:12 AM [facility] ANION GAP 8.0 5.0 - 15.0 MMOL/L 08/19/2024 9:12 AM [facility] OSMOLALITY (CALC) 293 MOSM/KG 025 9:12 AM [facility] Comment:REFERENCE RANGE NOT ESTABLISHED GFR ESTIMATE 86(L) >89 ML/MIN/1. 73 M2 08/19/2024 9:12 AM SPANNER OPERATOR [facility] GFR NOTES GFR REFERENCE S: 08/19/2024 9:12 AM SPANNER OPERATOR [facility] Comment: THE ESTIMATED GFR IS CALCULATED [...] FAILURE: <15 ml/min/1.73 m2 08/19/2024 8:35 AM SPANNER OPERATOR us Chadwick Man Lam MD LABORATORY Final Result [facility] [address] [place] [address], * (ABNORMAL) CBC W/DIFF AUTOMATED (08/19/2024 8:35 AM SPANNER OPERATOR) WBC 6.33 4.00 - 10.80 x10'3/uL 08/19/2024 8:45 AM SPANNER OPERATOR [facility] RBC 4.10(L) 4.50 - 6.10 x10'6/uL 08/19/2024 8:45 AM [facility] HGB 12.4(L) 13.0 - 18.0 G/DL 08/19/2024 8:45 AM SPANNER OPERATOR [facility] HCT 37.2 37.0 - 52.0 % 08/19/2024 8:45 AM [facility] MCV 90.7 78.0 - 100.0 FL 08/19/2024 8:45 AM [facility] MCH 30.2 27.0 - 31.0 PG 08/19/2024 8:45 AM [facility] MCHC 33.3 33.0 - 36.0 G/DL 08/19/2024 8:45 AM [facility] RDW 13.8 11.5 - 14.5 % 08/19/2024 8:45 AM [facility] PLT 228 150 - 350 x10'3/uL 08/19/2024 8:45 AM [facility] MPV 10.0 7.4 - 10.4 FL 08/19/2024 8:45 AM [facility] CBC COMMENT NORMAL REFERENCE RANGE NOT ESTABLISHED FOR THE PROPORTIONAL LEUKOCYTE DIFFERENTIAL. 08/19/2024 8:45 AM [facility] NEUTROPHILS % 72.5 % 08/19/2024 8:45 AM [facility] LYMPHOCYTES % 15.0 % 08/19/2024 8:45 AM [facility] MONOCYTES % 10.0 % 08/19/2024 8:45 AM [facility] EOSINOPHILS % 1.4 % 08/19/2024 8:45 AM [facility] BASOPHILS % 0.6 % 08/19/2024 8:45 AM [facility] IMMATURE GRANS % 0.5 % 08/19/19 8:45 AM [facility] NRBC % 0.0 % 08/19/2024 8:45 AM [facility] ABS. NEUTROPHILS 4.59 1.60 - 8.30 x10'3/uL 08/19/2024 8:45 AM [facility] ABS. LYMPHOCYTES 0.95 0.80 - 4.70 x10'3/uL 08/19/2024 8:45 AM [facility] ABS. MONOCYTES 0.63 0.00 - 1.50 x10'3/uL 08/19/2024 8:45 AM [facility] ABS. EOSINOPHILS 0.09 0.00 - 0.40 x10'3/uL 08/19/2024 8:45 AM [facility] ABS. BASOPHILS 0.04 0.00 - 0.20 x10'3/uL 08/19/2024 8:45 AM SPANNER OPERATOR [facility] ABS. IMMATURE GRANULOCYTES 0.03 0.00 - 0.03 x10'3/uL 08/19/2024 8:45 AM SPANNER OPERATOR [facility] ABS. NUCLEATED RBC'S 0.00 0.00 - 0.01 x10'3/uL 08/19/2024 8:45 AM SPANNER OPERATOR [facility] 08/19/2024 8:35 AM SPANNER OPERATOR us Chadwick Lam MD LABORATORY Final Result [facility] [address] [place] [address], * US GD THORACENT W IMAGING (07/26/2024 11:20 AM SPANNER OPERATOR) Anatomical Region Laterality Modality Ultrasound, Radi ographic Imaging 07/26/2024 12:0 4 PM SPANNER OPERATOR Impressions 07/26/2024 12:09 PM SPANNER OPERATOR IMPRESSION: Uneventful ultrasound-guided right thoracentesis as described. Ordered By: CHADWICK LAM Interpreted By: Jose Jasso MD, 07/26/2024 12:04 PM Narrative 07/26/2024 12:09 PM SPANNER OPERATOR [place] [id number] [facility] [place] [address] Examination: Ultrasound-guided right thoracentesis. Exam time: 1030 [...] placed to facilitate introduction of a 5 Burmese One-Step catheter into the pleural cavity. This [...] Procedure Note Jose Jasso MD - 07/26/2024 [facility] [address] [facility] [place] [address] Examination: Ultrasound-guided right thoracentesis. Exam time: 1030 hours. Clinical history: Prior right upper lobectomy for adenocarcinoma.Development of right pleural eff[facility] malignant effusion. Therapeuticthoracentesis. [...] PA OR AP 1V (07/26/2024 11:19 AM SPANNER OPERATOR) Anatomical Region Laterality Modality Chest Radiographic Jana ging 07/26/2024 12:3 3 PM SPANNER OPERATOR Impressions 07/26/2024 12:36 PM SPANNER OPERATOR IMPRESSION: 1. No evidence of pneumothorax, status post right thoracentesis. 2. Nonspecific opacity in the right hemithorax as described. Ordered By: CHADWICK LAM Interpreted By: Jose Jasso MD, 07/26/2024 12:33 PM Narrative 07/26/2024 12:36 PM SPANNER OPERATOR [place] [id number] [facility] [place] [address] Examination: Single view chest. Exam time: 1100 hours. Clinical history: Prior right upper lobectomy for cancer in May 2023. Recently documented malignant right pleural effusion at another facility. Post thoracentesis. Comparison: 09/14/2020 ([facility]). Technique: PA upright expiratory view. Findings: Allowing [...] Procedure Note Jose Jasso MD - 07/26/[address] [place] [address] Examination: Single view chest. Exam time: 1100 hours. Clinical history: Prior right upper lobectomy for cancer in May 2023.Recently documented malignant right pleural effusion at another facility.Post thoracentesis. Comparison: 09/14/2020 ([facility]). Technique: PA upright expiratory view. Findings: Allowing [...] * PARTIAL THROMBOPLASTIN TIME,PTT (07/26/2024 9:56 AM SPANNER OPERATOR) PTT 36.5 25.1 - 36.5 SEC 07/26/2024 10:10 AM SPANNER OPERATOR [facility] Comment:THERAPEUTIC RANGE: 4 6.2-77.0 SEC 07/26/2024 9:56 AM SPANNER OPERATOR Chadwick Lam MD LABORATORY Final Result [facility] [place] [address], * (ABNORMAL) PROTIME/INR, VENOUS (07/26/2024 9:56 AM SPANNER OPERATOR) PROTIME 12.3 9.4 - 12.5 SEC 07/26/2024 10:10 AM SPANNER OPERATOR [facility] INR 1.1(H) 0.8 - 1.0 07/26/2024 10:10 AM SPANNER OPERATOR [facility] 07/26/2024 9:56 AM SPANNER OPERATOR Chadwick Lam MD LABORATORY Final Result Performing Organization Address [facility]/State/ZIP Co de Phone Number [facility] [address] [place] [address], [place] [phone] * LIPID PANEL (09/14/2020 2:32 PM SPANNER OPERATOR) CHOLESTEROL 233 MG/DL 09/14/2020 3:09 PM SPANNER OPERATOR [facility] Comment:BORDERLINE HIGH: 200 -239 TRIGLYCERIDES 48 MG/DL 09/14/2020 3:09 PM SPANNER OPERATOR [facility] Comment:<150 NORMAL HDL 58 >39 MG/DL 09/14/2020 3:09 PM SPANNER OPERATOR [facility] LDL (CALCULATED) 165 MG/DL 09/14/19 3:09 PM SPANNER OPERATOR [facility] Comment:160-189 HIGH VLDL CALCULATION 10 MG/DL 09/14/19 3:09 PM SPANNER OPERATOR [facility] Comment:REFERENCE RANGE NOT ESTABLISHED CHOL/HDL RATIO 4.0 09/14/2020 3:09 PM SPANNER OPERATOR [facility] Comment:REFERENCE RANGE NOT ESTABLISHED LDL/HDL 2.9 09/14/2020 3:09 PM SPANNER OPERATOR [facility] Comment:REFERENCE RANGE NOT ESTABLISHED NON HDL CHOLESTEROL 175 MG/DL 09/14/2020 3:[address] [facility] Comment:REFERENCE RANGE NOT ESTABLISHED 09/14/2020 2:32 PM SPANNER OPERATOR Andrea Jean Baptiste MD LABORATORY Final Res ult [facility] [address] [place] [address], [place] [phone] [id number] from Last 3 Months or Most Recently Relevant to Health Maintenance Insurance MEDICARE [facility] Advance Directives Documents on File Type Date Recorded Patient Veterinary Toxicologist Expl anation Advance Directives and Living Will 09/15/2020 8:28 AM 05/24/2016 HC POA Advance Directives and Living Will 03/08/2017 [employer] [facility] [facility] Advance Directives and Living Will 03/08/2017 P[employer] [facility] Advance Directives and Living Will 02/20/2017 P[employer] R HE[employer] C[employer] Advance Directives and Living Will 02/20/2017 POWER OF MAP [employer] R HE[employer] C[facility] * Full Code (Latest Code Status on File) Date Activated Date Inactivated Comments 10/31/2022 3:44 PM 11/04/2022 1:51 PM Care Teams Wood Tank Builder Relationship Specialty Start Date End Date Thiago Horton MD [address] [place] [address] PCP - General FAMILY PRACTICE 09/16/20 Andrea Jean Baptiste MD [address] [place] [address] Consulting Physician INTERVENTIONAL CARDIOLOGY 09/16/20 Kirby Mesa APRN [address] [facility] [address] [place] [address] Nurse Practitioner NURSE PRACTITIONER 09/16/20 Manisha Guidry MD [address] [place] [id number] PULMONARY DISEASE 02/08/23
--- NOTE | 2024-09-08 12:00 | ED_ITS ---
HPI - Abdominal Pain General Chief Complaint: Urogenital-Male Stated Complaint: left groin pain Time Seen by Provider: 09/08/24 10:01 Source: patient and family Mode of arrival: ambulatory Limitations: no limitations History of Present Illness HPI narrative: Patient is an 84-year-old male with left lower groin pain and swelling over the past day. He gets this from time to time and usually it is when his lungs fill up with fluid due to the lung cancer. He has had multiple thoracentesis fluid removals in the past at [facility]. MD elicited complaint: abdominal pain ( Left groin) Pertinent past history: other ( lung cancer, hypertension, diabetes 2) Onset (ago): day(s) (1) Pain Consistency: intermittent Location: LLQ, pelvis ( left) and groin ( left) Severity: mild Pain scale (0-10): 2 Quality: sharp Radiation: none Migration to: no migration Exacerbating factors: movement Relieving factors: rest Context: confirms history of similar episodes Associated symptoms: denies other symptoms Treatments prior to arrival: other ( none) Related Data Home Medications ?Medication ?Instructions ?Recorded ?Confirmed ?Last Taken ?Type amitriptyline 10 mg tablet 10 mg PO HS 06/21/24 06/21/24 Unknown History aspirin 81 mg tablet,delayed 81 mg PO DAILY 06/21/24 07/01/24 06/24/24 History release atorvastatin 40 mg tablet 40 mg PO DAILY 06/21/24 06/21/24 Unknown History glipizide 10 mg tablet 10 mg PO DAILY 06/21/24 06/21/24 Unknown History lisinopril 10 mg tablet 10 mg PO DAILY 06/21/24 07/01/24 07/01/24 History omeprazole 20 mg capsule,delayed 20 mg PO DAILY 06/21/24 06/21/24 Unknown History release propranolol 60 mg tablet 60 mg PO HS 06/21/24 06/21/24 Unknown History timolol 0.5 % eye drops (Betimol) 1 drp ophthalmic (eye) BID 06/21/24 06/21/24 Unknown History tramadol 50 mg tablet 50 mg PO BID PRN Pain 06/21/24 07/01/24 07/01/24 History vitamin B12 1 mg-folic acid 0.8 mg 1 tablet PO DAILY 06/21/24 06/21/24 Unknown History tablet Allergies Allergy/AdvReac Type Severity Reaction Status Date / Time codeine Allergy Unknown Verified 09/08/24 09:53 acetaminophen AdvReac Intermediate Nausea Verified 09/08/24 09:53 Review of Systems Review of Systems: All systems reviewed & are unremarkable except as noted in HPI and below Constitutional: Constitutional: Reports no additional constitutional complaints Eyes: Eyes: Reports no additional eye complaints ENT: Reports system reviewed and no additional complaints, except as documented Cardiovascular: Cardiovascular: Reports no additional cardiovascular complaints Respiratory: Respiratory: Reports no additional respiratory complaints Gastrointestinal: Gastrointestinal: Reports no additional gastrointestinal complaints Genitourinary: Genitourinary: Reports no additional male genitourinary complaints Musculoskeletal: Musculoskeletal: Reports no additional musculoskeletal complaints Integumentary/Breasts: Skin/Breast: Reports system reviewed and no additional complaints, except as docu Neurologic: Reports system reviewed and no additional complaints, except as documented Psychiatric: Psychiatric: Reports no additional psychiatric complaints Endocrine: Endocrine: Reports no additional endocrine complaints Hematologic/Lymphatic: Hematologic/Lymphatic: Reports no additional hematologic/lymphatic complaints Allergic/Immunologic: Allergic/Immunologic: Reports no additional allergic/immunologic complaints Exam Const: General: healthy appearing Nutritional Appearance: well nourished Orientation/consciousness: patient oriented x3 HENMT: Head: normal to inspection Ears: external ears normal Face/Nose/Sinus: Normal external nose present Eyes: Conjunctivae: conjunctivae normal Pupils: Equal, round and reactive pupils present EOM: EOMs intact bilaterally Neck: Neck: normal visual inspection Chest: Chest palpation & inspection: normal inspection of the chest Resp: Effort & Inspection: normal respiratory effort and not labored Auscultation: clear to auscultation bilaterally and no crackles Cardio: Rate: regular rate Rhythm: regular rhythm Heart sounds: no murmurs GI: Inspection: non-distended GI Palp: Yes Soft to palpation, Yes Tenderness to palpation present (GI) ( left lower groin pubic region), No Guar ding due to palpation present (GI), No Rigid due to palpation, No Hernia present, No Palpable mass present and No Rebound tenderness present Auscultation: normal bowel sounds : General: Yes bladder normal to palpation Back/Spine/Pelvis: Back: no CVA tenderness Skin: General skin exam: normal color Rashes: no rashes Wounds: no wounds Neuro: General: patient oriented x3 Cranial nerves: Yes Nystagmus not present Speech: normal speech Extrem: General: normal to inspection Psych: Mental Status: mental status grossly normal Affect: normal affect Attitude: cooperative Course Vital Signs Vital signs: Vital Signs Temperature 36.6 C 09/08/24 09:53 Pulse Rate 64 09/08/24 09:53 Respiratory Rate 18 09/08/24 09:53 Blood Pressure 131/89 09/08/24 09:53 Pulse Oximetry 100 09/08/24 09:53 Oxygen Delivery Room Air 09/08/24 09:53 Temperature 36.6 C 09/08/24 09:53 Pulse Rate 59 L 09/08/24 12:00 Respiratory Rate 17 09/08/24 12:00 Blood Pressure 143/74 H 09/08/24 12:00 Pulse Oximetry 96 09/08/24 12:00 Oxygen Delivery Room Air 09/08/24 09:53 MDM - Abdominal Pain MDM Narrative Medical decision making narrative: patient is an 84-year-old male with groin swelling at times. He also has shortness of breath/ lung cancer. We will get a basic chest x-ray to look for fluid and CT scan of the abdomen and pelvis without contrast. Chest x-ray shows large pleural effusion as well as a CT scan. We will go ahead and transfer the patient for thoracentesis to a facility that has interventional radiology or similar ability to do thoracentesis non emergently. Imaging Data Attestation: I personally reviewed and interpreted this imaging study as follows: Radiologist's impression: ITS Impressions Abdomen/Pelvis CT 09/08/24 12:29 IMPRESSION: 1. No acute intra-abdominal/pelvic process. 2. Partially visualized at least moderate-sized unilateral right pleural effusion. Correlate with results from prior thoracentesis performed without prior. 3. Cholelithiasis. 4. Nonobstructing 7 mm left renal stone. 5. Large bilateral fat-containing inguinal hernias. 6. Prostatomegaly. Chest X-Ray 09/08/24 12:37 IMPRESSION: 1. Increased size of a unilateral large right pleural effusion with partial collapse of the right lung. Underlying pneumonia or malignancy in the right lung is not excludable. Discharge Plan Discharge Clinical Impression: Pleural effusion Lung cancer Qualifiers: Laterality: right Lung location: unspecified part of lung Qualified Code(s): C34.91 - Malignant neoplasm of unspecified part of right bronchus or lung Patient Disposition: Acute Care Hospital Condition: Stable Patient Language: Gabonese Prescriptions: No Action aspirin [Adult Aspirin EC Low Strength] 81 mg Tablet,Delayed Release (Dr/Ec) 81 mg PO DAILY atorvastatin 40 mg Tablet 40 mg PO DAILY glipizide 10 mg Tablet 10 mg PO DAILY Rx Instructions: w breakfast lisinopril 10 mg Tablet 10 mg PO DAILY omeprazole 20 mg Capsule,Delayed Release(Dr/Ec) 20 mg PO DAILY Rx Instructions: before meal Betimol 0.5 % Drops 1 drp ophthalmic (eye) BID tramadol 50 mg Tablet 50 mg PO BID PRN (Reason: Pain) vitamin [id number] 1-0.8 mg Tablet 1 tablet PO DAILY propranolol 60 mg Tablet 60 mg PO HS amitriptyline 10 mg Tablet 10 mg PO HS Follow-up/Referrals: Nate Alcala MD [Primary Care Provider] - Time of Disposition: 13:38
== END 2024-09-08 14:56 | disposition home or self-care (01) ==
PROVIDERS: Emergency Provider Emergency Medicine; PCP Internal Medicine
DX: J90 Pleural effusion, not elsewhere classified (principal); C34.91 Malignant neoplasm of unspecified part of right bronchus or lung; E11.9 Type 2 diabetes mellitus without complications; I10 Essential (primary) hypertension
CPT/HCPCS: 71045; 74176; 99284

== ENCOUNTER 2025-07-17 12:10 | Outpatient (CLI) | payer MEDICARE, SELFPAY ==
--- NOTE | ~2025-07-17 | XR_ITS ---
EXAMINATION: XR ribs LT 2V w CXR 2V DATE: 07/17/2025 12:37 INDICATION: Left chest wall and sternal pain TECHNIQUE: PA and lateral views of the chest and 3 views of the left ribs were obtained. COMPARISON: Chest radiograph dated 09/08/2024 FINDINGS: There are minimally displaced fractures of the anterior left fifth and sixth ribs. Again seen are airspace opacities throughout the right lung which could represent atelectasis or pneumonia superimposed over a persistent moderate to large right pleural effusion. A couple calcified nodules in the left mid to upper lung consistent with old granulomatous disease. No pneumothorax or left- sided pleural effusion. Heart size is normal. Suture anchors at the right humeral head suggesting prior rotator cuff repair. IMPRESSION: 1. Minimally displaced anterior left fifth and sixth rib fractures. 2. Persistent moderate to large right pleural effusion with associated atelectasis versus less likely pneumonia. Reviewed, dictated and finalized at location A. UCTION CLERK IMPRESSION: 1. Minimally displaced anterior left fifth and sixth rib fractures. 2. Persistent moderate to large right pleural effusion with associated atelecta sis versus less likely pneumonia.
== END 2025-07-17 12:11 | disposition home or self-care (01) ==
PROVIDERS: PCP Internal Medicine; Visit Provider Internal Medicine
DX: S29.9XXA Unspecified injury of thorax, initial encounter (principal); S22.42XA Multiple fractures of ribs, left side, initial encounter for closed fracture; J90 Pleural effusion, not elsewhere classified; R91.8 Other nonspecific abnormal finding of lung field
CPT/HCPCS: 71046; 71100